=== PATIENT | female | born 1965 | race Caucasian/White ===

== ENCOUNTER 2017-04-30 10:29 | Day surgery (SDC) | payer OTHER ==
[~2017-04-30 10:29] MED LIST: LIDOCAINE HCL 1% MPF SOL ONE; PROPOFOL 500 MG/50 ML EMU IV ONE
[2017-04-30 12:48] VITALS: TEMP 98
[2017-04-30 12:59] VITALS: O2SAT 93
[2017-04-30 13:13] VITALS: BP 134/82; PULSE 88; RESP 18
== END 2017-04-30 13:35 | disposition home or self-care (01) | DRG 395 ==
LOC: SURG 10:29
PROVIDERS: ATTEND Internal Medicine Gastroenterology
DX: K62.89 Other specified diseases of anus and rectum (principal); D12.3 Benign neoplasm of transverse colon; K59.00 Constipation, unspecified; Z86.010 Personal history of colon polyps; K60.2 Anal fissure, unspecified; K64.8 Other hemorrhoids; D12.4 Benign neoplasm of descending colon; K63.5 Polyp of colon; D12.5 Benign neoplasm of sigmoid colon
CPT/HCPCS: J2001; J2704

== ENCOUNTER 2017-10-31 00:08 | Emergency (ER) | payer OTHER ==
[2017-10-31 00:17] VITALS: RESP 16; TEMP 96.9
[2017-10-31 00:49] LABS: APPEARANCE,URINE Cloudy; BILIRUBIN,URINE NEGATIVE (NEGATIVE); COLOR,URINE Dark yellow; GLUCOSE, URINE (UA) NEGATIVE (NEGATIVE); KETONES,URINE TRACE (NEGATIVE); LEUKOCYTE ESTERASE ,URINE 3+ (NEGATIVE); NITRATE,URINE POSITIVE (NEGATIVE); OCCULT BLOOD,URINE 3+ (NEG-TRACE); PH,URINE 5.5; UROBILINOGEN,URINE 0.2 (0.2-1.0 EU)
[2017-10-31 01:05] LABS: RBC,URINE 100-150 (0-3AV/HPF); WBC,URINE 150-200 (0-5AV/HPF)
[2017-10-31 01:06] LABS: BACTERIA 2+ (< 1+); CRYSTALS NEGATIVE (0-3 AVE/HPF); EPITHELIAL CELLS NEGATIVE (SQUAMOUS)
[2017-10-31] MEDS ORDERED: SULFAMETHOXAZOLE/TRIMETHOPRI 800/160 MG PO ONE (01:14)
[2017-10-31] MEDS ORDERED: SULFAMETHOXAZOLE/TRIMETHOPRI 800/160 MG ONE (01:23)
[2017-10-31 01:31] LABS: CALCIUM 8.8 mg/dl (8.5-10.1); CARBON DIOXIDE 29.4 mEq/L (21-32); CREATININE 0.71 mg/dl (0.60-1.00); POTASSIUM 3.2 mMol/L (3.5-5.1)
[2017-10-31 01:45] VITALS: BP 143/75; PULSE 83; O2SAT 93
== END 2017-10-31 01:30 | disposition home or self-care (01) | DRG 690 ==
LOC: ED 00:08
DX: N39.0 Urinary tract infection, site not specified (principal); B96.20 Unspecified Escherichia coli [E. coli] as the cause of diseases classified elsewhere
CPT/HCPCS: 36415; 80048; 81001; 87077; 87088; 87186; 99283; A9270-GY

== ENCOUNTER 2017-12-07 21:32 | Emergency (ER) | payer OTHER ==
[2017-12-07 21:41] VITALS: TEMP 95.5
[2017-12-07] MEDS ORDERED: ALBUTEROL NEB SOL 2.5MG/3ML 1 VIAL SOL NEB ONE (22:51)
[2017-12-07] MEDS ORDERED: SODIUM CHLORIDE 0.9% 1000ML 1,000 ML IV ONE (22:52)
[2017-12-07] MEDS ORDERED: SOLUMEDROL 125 MG/2 ML 125 MG/2 ML PDS IV ONE (22:53)
[2017-12-07] MEDS ORDERED: AZITHROMYCIN 250 MG TAB PO ONE (22:53)
[2017-12-07] MEDS ORDERED: ALBUTEROL NEB SOL 2.5MG/3ML 1 VIAL SOL ONE (22:57)
[2017-12-07] MEDS ORDERED: AZITHROMYCIN 250 MG TAB ONE (22:57)
[2017-12-07] MEDS ORDERED: SOLUMEDROL 125 MG/2 ML 125 MG/2 ML PDS ONE (22:57)
[2017-12-07 23:09] LABS: BASOPHILS % (AUTO) 1 % (0-3); EOSINOPHILS % (AUTO) 1 % (0-9); HEMATOCRIT 46 % (35-47); HEMOGLOBIN 14.8 gm/dl (12.0-15.5); LYMPHOCYTES % (AUTO) 33.6 % (10-50); MEAN CORPUSCULAR HEMOGLOBIN 32.4 pg (27.0-32.0); MEAN CORPUSCULAR HGB CONC 32.5 gm/dl (32.0-36.0); MONOCYTES % (AUTO) 5.9 % (0-12); NEUTROPHILS % (AUTO) 58.8 % (37-80)
[2017-12-07 23:11] VITALS: RESP 24
[2017-12-07 23:11] LABS: MEAN CORPUSCULAR VOLUME 100 fL (81-99)
[2017-12-07 23:15] LABS: CALCIUM 8.7 mg/dl (8.5-10.1); CREATININE 0.68 mg/dl (0.60-1.00); POTASSIUM 3.9 mMol/L (3.5-5.1)
[2017-12-08 00:20] VITALS: BP 117/61; PULSE 88; O2SAT 92
== END 2017-12-08 00:11 | disposition home or self-care (01) | DRG 192 ==
LOC: ED 21:32
DX: J44.1 Chronic obstructive pulmonary disease with (acute) exacerbation (principal); F17.210 Nicotine dependence, cigarettes, uncomplicated
CPT/HCPCS: 36415; 71046; 80048; 85025; 96365; 96374; 99283; 99284; J2930; J7613; A9270-GY

== ENCOUNTER 2018-06-15 16:45 | Emergency (ER) | payer OTHER ==
[2018-06-15 17:00] VITALS: RESP 18; TEMP 97.8
[2018-06-15] MEDS ORDERED: IBUPROFEN 600 MG TAB PO ONE (18:31)
[2018-06-15] MEDS ORDERED: IBUPROFEN 600 MG TAB ONE (18:42)
[2018-06-15 19:08] VITALS: BP 138/82; PULSE 61; O2SAT 96
== END 2018-06-15 18:54 | disposition home or self-care (01) | DRG 552 ==
LOC: ED 16:45
DX: S33.5XXA Sprain of ligaments of lumbar spine, initial encounter (principal); E11.9 Type 2 diabetes mellitus without complications
CPT/HCPCS: 72070; 72120; 73502; 99282; 99283; A9270-GY